=== PATIENT | female | born 1930 | race Caucasian/White ===

== ENCOUNTER 2017-04-22 10:18 | Inpatient (IN) | payer MEDICARE, OTHER ==
[~2017-04-22] VITALS: Ht 167.6 cm; Wt 64.8 kg
[2017-04-22 10:53] VITALS: BP 191/84; PULSE 73; RESP 18; TEMP 98.3
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
[2017-04-22] MEDS ORDERED: SODIUM CHLORIDE 0.9% FLUSH 5 ML FLUSH IV FLUSH PRN (11:15)
[2017-04-22 11:35] LABS: AUTOMATED NEUTROPHIL # 5.1 TH/MM3 (1.8-7.7); BASOPHIL % 0.1 % (0.0-2.0); EOSINOPHIL # 0.1 TH/MM3 (0-0.4); EOSINOPHIL % 1.9 % (0.0-4.0); HEMATOCRIT 40.4 % (35.0-46.0); HEMO FLAGS DIFF FINAL; LYMPH % 20.9 % (9.0-44.0); LYMPHOCYTE # 1.6 TH/MM3 (1.0-4.8); MEAN CELL VOLUME 92.5 FL (80.0-100.0); MEAN CORPUSCULAR HEMOGLOBIN 30.7 PG (27.0-34.0); MEAN CORPUSCULAR HGB CONC 33.1 % (32.0-36.0); MONO % 8.7 % (0.0-8.0); NEUT % 68.4 % (16.0-70.0); PLATELET COUNT 335 TH/MM3 (150-450); RED BLOOD COUNT 4.36 MIL/MM3 (4.00-5.30); RED CELL DISTRIBUTION WIDTH 14.5 % (11.6-17.2); WHITE BLOOD COUNT 7.4 TH/MM3 (4.0-11.0)
[2017-04-22 11:36] LABS: BACTERIA, URINE RARE /hpf; BLOOD, URINE NEG (NEG); GLUCOSE,URINE NEG (NEG); KETONE, URINE NEG (NEG); MUCUS URINE FEW /lpf (OCC); NITRITE,URINE NEG (NEG); PH, URINE 6.5 (5.0-8.5); SQUAMOUS EPITHELIAL CELL URINE <1 /hpf (0-5); URINE COLOR YELLOW (YELLW/STRAW)
[2017-04-22 11:39] LABS: COMMENT (UR) CATH-CULTURE IND; CULTURE IF INDICATED CATH CULTURE IND
[2017-04-22 11:46] LABS: ANION GAP 8 MEQ/L (5-15); BICARBONATE 27.2 MEQ/L (21.0-32.0); BLOOD UREA NITROGEN 22 MG/DL (7-18); CHLORIDE 105 MEQ/L (98-107); GLOMERULAR FILTRATION RATE 91 ML/MIN (>89); POTASSIUM 3.9 MEQ/L (3.5-5.1); SODIUM (NA) 140 MEQ/L (136-145)
[2017-04-22 11:49] LABS: ALCOHOL LESS THAN 3 MG/DL (0-5)
[2017-04-22] MEDS ORDERED: LORazepam 2 MG/ML VIAL IM ONE (12:15)
[2017-04-22] MEDS ORDERED: HALOPERIDOL LACTATE 5 MG/ML AMP IM ONE (12:15)
--- NOTE | 2017-04-22 12:24 | RADRPT ---
EXAM DATE/TIME: 04/22/2017 11:49 [facility] COMPARISON: No previous studies available for comparison. INDICATIONS : Shortness of breath. MEDICAL HISTORY : None. SURGICAL HISTORY : None. ENCOUNTER: Initial ACUITY: 1 day PAIN SCORE: 0/10 LOCATION: Bilateral chest FINDINGS: A single view of the chest demonstrates the lungs to be symmetrically aerated without evidence of mas s, infiltrate or effusion. The cardiomediastinal contours are unremarkable. Osseous structures are intact. A rounded calcified density projects over left scapula. CONCLUSION: No acute disease. Sly Olmos Jr., MD on April 22, 2017 at 12:22 Board Certified Radiologist. This report was verified electronically.
--- NOTE | 2017-04-22 13:28 | RADRPT ---
EXAM DATE/TIME: 04/22/2017 13:07 [facility] COMPARISON: No previous studies available for comparison. INDICATIONS : Altered mental status. RADIATION DOSE: 31.06 CTDIvol (mGy) MEDICAL HISTORY : None SURGICAL HISTORY : Hysterectomy. ENCOUNTER: Initial ACUITY: 1 day PAIN SCALE: 0/10 LOCATION: cranial TECHNIQUE: Multiple contiguous axial images were obtained of the head. Using automated exposure control and adj ustment of the mA and/or kV according to patient size, radiation dose was kept as low as reasonably a chievable to obtain optimal diagnostic quality images. DICOM format image data is available electro nically for review and comparison. FINDINGS: CEREBRUM: The ventricles are normal for age. Cortical atrophy. Areas of low-attenuation in the periventricular white matter. No evidence of midline shift, mass lesion, hemorrhage or acute infarction. No extra-ax ial fluid collections are seen. POSTERIOR FOSSA: The cerebellum and brainstem are intact. The 4th ventricle is midline. The cerebellopontine angle i s unremarkable. EXTRACRANIAL: The visualized portion of the orbits is intact. SKULL: The calvaria is intact. No evidence of skull fracture. CONCLUSION: 1. Cortical atrophy and periventricular white matter changes. 2. No acute intracranial abnormality. Christopher Dumont MD on April 22, 2017 at 13:23 Board Certified Radiologist. This report was verified electronically.
[2017-04-22 14:55] VITALS: BP 199/94; PULSE 76; RESP 18; O2SAT 99
[2017-04-22 16:20] VITALS: BP 170/77; PULSE 72; RESP 18; O2SAT 100
[2017-04-22] MEDS ORDERED: ALUMINUM/MAGNESIUM/SIMETH 30 ML CUP PO PRN (17:00)
[2017-04-22] MEDS ORDERED: MAGNESIUM HYDROXIDE SUSP 30 ML CUP PO PRN (17:00)
[2017-04-22] MEDS ORDERED: LORazepam 1 MG TAB PO PRN (17:00)
[2017-04-22] MEDS ORDERED: LORazepam 2 MG/ML VIAL IM PRN ×2 (17:00)
[2017-04-22] MEDS ORDERED: LORazepam 0.5 MG TAB PO PRN (17:00)
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
[2017-04-22 22:07] VITALS: BP 159/82; PULSE 79; RESP 18
[2017-04-22] MEDS ORDERED: ENOXAPARIN SODIUM 40 MG/0.4 ML SYRINGE SQ SCH (23:00)
--- NOTE | 2017-04-22 23:14 | RADRPT ---
EXAM DATE/TIME: 04/22/2017 22:31 [facility] COMPARISON: No previous studies available for comparison. INDICATIONS : CVA. MEDICAL HISTORY : Unknown. SURGICAL HISTORY : Unknown. ENCOUNTER: Subsequent ACUITY: 1 day PAIN SCORE: 3/10 LOCATION: cranial TECHNIQUE: Multiplanar, multisequence MRI of the brain was performed without contrast. FINDINGS: CEREBRUM: The ventricles are normal for age. No evidence of midline shift, mass lesion, hemorrhage or acute in farction. No extraaxial fluid collections are seen. The pituitary gland and suprasellar cistern are normal in configuration. WHITE MATTER: Mild signal abnormalities are seen in the white matter. POSTERIOR FOSSA: The cerebellum and brainstem are intact. The 4th ventricle is midline. The cerebellopontine angle is unremarkable. The cerebellar tonsils are normal in position. DIFFUSION IMAGING: No focal areas of restricted diffusion are seen. No evidence of acute infarction. EXTRACRANIAL: The visualized portions of the orbits and paranasal sinuses are unremarkable. CONCLUSION: Mild chronic white matter ischemic changes. No acute findings. Specifically no recent infarction, mas s or hemorrhage identified. Lars Hightower MD on April 22, 2017 at 23:09 Board Certified Radiologist. This report was verified electronically.
--- NOTE | 2017-04-22 23:21 | RADRPT ---
EXAM DATE/TIME: 04/22/2017 22:47 [facility] COMPARISON: No previous studies available for comparison. INDICATIONS : Right leg swelling. MEDICAL HISTORY : None. SURGICAL HISTORY : Hysterectomy. ENCOUNTER: Initial ACUITY: 1 day PAIN SCORE: 2/10 LOCATION: Right leg. TECHNIQUE: Venous ultrasound of the leg was performed from the inguinal ligament to the proximal calf. Real-bandar e, color Doppler and spectral tracing, compression and augmentation techniques were used. FINDINGS: The examination is positive for superficial thrombus in the posterior tibial vein. Negative for deep venous thrombosis in the right common femoral vein, femoral vein, popliteal vein, peroneal vein or sa phenous vein. CONCLUSION: A small amount of nonocclusive superficial thrombus in the posterior tibial vein. Remainder of exam unremarkable. Lars Hightower MD on April 22, 2017 at 23:19 Board Certified Radiologist. This report was verified electronically.
[2017-04-22 23:50] VITALS: BP 181/80; PULSE 78; RESP 18; TEMP 97.9; O2SAT 97
[2017-04-23] MEDS ORDERED: ENOXAPARIN SODIUM 80 MG/0.8 ML SYRINGE SQ ONE (01:00)
[2017-04-23] MEDS ORDERED: amLODIPine BESYLATE 5 MG TAB PO ONE (01:00)
[2017-04-23 06:15] VITALS: BP 160/74; PULSE 70; RESP 16; TEMP 98; O2SAT 98
[2017-04-23] MEDS ORDERED: amLODIPine BESYLATE 5 MG TAB PO SCH (09:00)
[2017-04-23 09:31] LABS: AUTOMATED NEUTROPHIL # 4.7 TH/MM3 (1.8-7.7); BASOPHIL % 0.2 % (0.0-2.0); EOSINOPHIL # 0.1 TH/MM3 (0-0.4); EOSINOPHIL % 1.3 % (0.0-4.0); HEMATOCRIT 41.5 % (35.0-46.0); HEMO FLAGS DIFF FINAL; LYMPH % 21.3 % (9.0-44.0); LYMPHOCYTE # 1.5 TH/MM3 (1.0-4.8); MEAN CELL VOLUME 92.1 FL (80.0-100.0); MEAN CORPUSCULAR HEMOGLOBIN 30.3 PG (27.0-34.0); MEAN CORPUSCULAR HGB CONC 32.9 % (32.0-36.0); MONO % 7.8 % (0.0-8.0); NEUT % 69.4 % (16.0-70.0); PLATELET COUNT 331 TH/MM3 (150-450); RED CELL DISTRIBUTION WIDTH 14.6 % (11.6-17.2); WHITE BLOOD COUNT 6.8 TH/MM3 (4.0-11.0)
[2017-04-23 10:08] LABS: ANION GAP 7 MEQ/L (5-15); AST (GOT) 23 U/L (15-37); BICARBONATE 26.6 MEQ/L (21.0-32.0); BLOOD UREA NITROGEN 15 MG/DL (7-18); CHLORIDE 105 MEQ/L (98-107); GLOMERULAR FILTRATION RATE 93 ML/MIN (>89); POTASSIUM 3.9 MEQ/L (3.5-5.1); SODIUM (NA) 139 MEQ/L (136-145)
[2017-04-23 10:33] LABS: ALKALINE PHOSPHATASE 96 U/L (45-117); ALT (GPT) 19 U/L (10-53); HDL CHOLESTEROL 66.9 MG/DL (40.0-60.0); LDL CHOLESTEROL 98 MG/DL (0-99); TOTAL BILIRUBIN ADULT 0.6 MG/DL (0.2-1.0)
[2017-04-23] MEDS ORDERED: hydrOXYzine HCL 50 MG TAB PO PRN (12:00)
[2017-04-23] MEDS ORDERED: diphenhydrAMINE HCL 50 MG CAP PO PRN (12:00)
[2017-04-23] MEDS ORDERED: ALUMINUM/MAGNESIUM/SIMETH 30 ML CUP PO PRN (12:00)
[2017-04-23] MEDS ORDERED: MAGNESIUM HYDROXIDE SUSP 30 ML CUP PO PRN (12:00)
[2017-04-23] MEDS ORDERED: ACETAMINOPHEN 325 MG TAB PO PRN (12:00)
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
--- NOTE | 2017-04-23 13:35 | EKG ---
Date Performed: 04/22/2017 Time Performed: 12:06:58 PTAGE: 87 years EKG: Sinus rhythm WITH OCCASIONAL SUPRAVENTRICULAR PREMATURE COMPLEXES MODERATE VOLTAGE CRITERIA FOR LVH, CONSIDER NOR MAL VARIANT BORDERLINE ECG NO PREVIOUS TRACING DOCTOR: Rebeka Loya Interpretating Date/Time 04/23/2017 13:32:01
[2017-04-23] MEDS ORDERED: cloNIDine HCL 0.1 MG TAB PO PRN (16:00)
[2017-04-23 16:59] VITALS: BP 156/68; PULSE 70; RESP 16; TEMP 97.6
[2017-04-23 17:32] LABS: HEMOGLOBIN A1a 1.2 %; HEMOGLOBIN A1b 1.7 %; HEMOGLOBIN Ao 85.2 %; HEMOGLOBIN P3 4.2 %
[2017-04-24 05:49] VITALS: BP 122/58; PULSE 75; RESP 16; TEMP 98; O2SAT 97
[2017-04-24] MEDS: amLODIPine BESYLATE 5 MG TAB PO SCH (08:07)
--- NOTE | 2017-04-24 10:14 | HHI.PYPN ---
Subjective Remarks Patient seen in a room with nurse Staci and counselor Cailin. Chart reviewed. Patient compliant medications. Patient alert pleasant with me though somewhat flirtatious and inappropriate with her comments indicis me in me, she said I was "adorable" however she is redirectable with no significant behavioral issues. Patient's evaporator operator molasses who is her POA will be coming to see her early this afternoon when need to discuss with him issues related to placement patient safety her ability to live independently her ability to drive safely. But this time I see no need for specific psychotropic medication. We'll continue observation assessment. Urine culture results shows 50-100,000 mixed arsh "probably contaminant" Review of Systems Except as stated in HPI: all other systems reviewed are Neg Objective Alert: Yes [place]: Person, Place (she does this [facility]), Date (1915 and April) Mood: Happy, Other (somewhat intense) Affect: Other (increase range of motion intensity) Memory Intact: Comment (poor) Hallucinations: Other (denies) Delusions: No Delusion Type: Other (somewhat hypersexual questionable mildly grandiose) Suicidal: Ideation (denies) Homicidal: Ideation (denies) Insight/Judgment Poor Labs Date/Time Source Procedure Growth Status 04/22/17 11:09 Urine Catheterized Urine Urine Culture - Final 50-100,000 CFU/ML MIXED ARSH... Complete Vitals/IOs Vital Signs Date Time Temp Pulse Resp B/P (MAP) Pulse Ox O2 Delivery O2 Flow Rate FiO2 04/24/17 05:49 98.0 75 16 122/58 (79) 97 04/22/17 16:20 Room Air Intake and Output 04/24/17 04/24/17 04/24/17 07:59 15:59 23:59 Intake Total 0 ml Balance 0 ml Assessment & Plan Problem List: (1) Dementia in other diseases classified elsewhere with behavioral disturbance ICD Codes: F02.81 - Dementia in other diseases classified elsewhere with behavioral disturbance (2) Alzheimer's dementia with behavioral disturbance ICD Codes: G30.8 - Other Alzheimer's disease; F02.81 - Dementia in other diseases classified elsewhere with behavioral disturbance Assessment & Plan Estimated LOS: days patient continue somewhat confused though flirtatious in inappropriate comments towards me personally, she is no significant behavioral problem. Need to consult with her evaporator operator molasses who is her POA to help us determine discharge and placement recommendations Justification for Cont. Inpt. At this time patient will decompensate if place to the lower level of care Discharge Planning To be determined Glenn Castellanos MD Apr 24, 2017 10:14
[2017-04-24] MEDS ORDERED: LORazepam 1 MG TAB PO PRN (13:45)
[2017-04-24] MEDS ORDERED: LORazepam 0.5 MG TAB PO PRN (13:45)
[2017-04-24] MEDS ORDERED: diphenhydrAMINE HCL 50 MG CAP PO PRN (13:45)
[2017-04-24] MEDS ORDERED: LORazepam 2 MG/ML VIAL IM PRN ×2 (13:45)
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
[2017-04-24 17:43] VITALS: BP 145/72; PULSE 72; RESP 16; TEMP 97.1; O2SAT 100
[2017-04-24] MEDS: hydrOXYzine HCL 50 MG TAB PO PRN (20:42)
[2017-04-24] MEDS: ACETAMINOPHEN 325 MG TAB PO PRN (20:42)
[2017-04-24] MEDS: ENOXAPARIN SODIUM 40 MG/0.4 ML SYRINGE SQ SCH (22:01)
[2017-04-25 05:41] VITALS: BP 129/66; PULSE 76; RESP 16; TEMP 98.4; O2SAT 95
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
[2017-04-25] MEDS: amLODIPine BESYLATE 5 MG TAB PO SCH (08:39)
[2017-04-25] MEDS: MEMANTINE HCL 5 MG TAB PO SCH (08:39)
--- NOTE | 2017-04-25 13:38 | HHI.PYPN ---
Subjective Remarks Patient seen in day room with nurse Ruggiero chart review. Patient compliant medications, patient continues alert some vague diffuse confusion. She continues quite intense. She perseverates want to be discharged today. If not she wishes to discharge at 10:00 tomorrow morning when her [id number] comes to pick her up this is factitious. She was somewhat irritable as she perseverated on those questions in spite of our consistency in her responses. Neurologic consult noted and appreciated and agreed with Review of Systems Except as stated in HPI: all other systems reviewed are Neg Objective Alert: Yes [place]: Person, Place (she does this [facility] in [facility]), Date (1915 and April) Mood: Happy, Other (somewhat intense) Affect: Other (increase range of motion intensity) Memory Intact: Comment (poor) Hallucinations: Other (denies) Delusions: No Delusion Type: Other (somewhat hypersexual questionable mildly grandiose) Suicidal: Ideation (denies) Homicidal: Ideation (denies) Insight/Judgment Very poor Labs Test 04/25/17 09:04 Date/Time Source Procedure Growth Status 04/22/17 11:09 Urine Catheterized Urine Urine Culture - Final 50-100,000 CFU/ML MIXED RADHA... Complete Vitals/IOs Vital Signs Date Time Temp Pulse Resp B/P (MAP) Pulse Ox O2 Delivery O2 Flow Rate FiO2 04/25/17 05:41 98.4 76 16 129/66 (87) 95 04/22/17 16:20 Room Air Intake and Output 04/25/17 04/25/17 04/26/17 08:00 16:00 00:00 Intake Total 0 ml Balance 0 ml Assessment & Plan Problem List: (1) Dementia in other diseases classified elsewhere with behavioral disturbance ICD Codes: F02.81 - Dementia in other diseases classified elsewhere with behavioral disturbance (2) Alzheimer's dementia with behavioral disturbance ICD Codes: G30.8 - Other Alzheimer's disease; F02.81 - Dementia in other diseases classified elsewhere with behavioral disturbance Assessment & Plan Estimated LOS: days. Continue somewhat confused showing some slight increased irritability when not accepting our responses to her questions about discharge Justification for Cont. Inpt. At this time patient will decompensate the placed in a lower level of care Discharge Planning To be determined Request HC Surrog/Guard Advoc?: Yes Glenn Castellanos MD Apr 25, 2017 13:38
[2017-04-25] MEDS: hydrOXYzine HCL 50 MG TAB PO PRN (19:51)
[2017-04-25] MEDS: ENOXAPARIN SODIUM 40 MG/0.4 ML SYRINGE SQ SCH (20:53)
[2017-04-26 05:39] VITALS: BP 139/64; PULSE 87; RESP 18; TEMP 98.2
[2017-04-26] MEDS: MEMANTINE HCL 5 MG TAB PO SCH (10:32)
[2017-04-26] MEDS: amLODIPine BESYLATE 5 MG TAB PO SCH (10:32)
--- NOTE | 2017-04-26 14:02 | HHI.PYPN ---
Subjective Remarks Patient seen on unit with floor staff. Patient remains alert though diffusely confused continues to demand immediate discharge. Asking why she is a big taken home. For now continue treatment. Will continue to work with patient's advocate related to placement recommendations Review of Systems Except as stated in HPI: all other systems reviewed are Neg Objective Alert: Yes [place]: Person, Place (she does this [facility] in [facility]), Date (1915 and April) Mood: Happy, Other (somewhat intense) Affect: Other (increase range of motion intensity) Memory Intact: Comment (poor) Hallucinations: Other (denies) Delusions: No Delusion Type: Other (somewhat hypersexual questionable mildly grandiose) Suicidal: Ideation (denies) Homicidal: Ideation (denies) Insight/Judgment Very poor Labs Date/Time Source Procedure Growth Status 04/22/17 11:09 Urine Catheterized Urine Urine Culture - Final 50-100,000 CFU/ML MIXED RADHA... Complete Vitals/IOs Vital Signs Date Time Temp Pulse Resp B/P (MAP) Pulse Ox O2 Delivery O2 Flow Rate FiO2 04/26/17 05:39 98.2 87 18 139/64 (89) 04/25/17 05:41 95 04/22/17 16:20 Room Air Intake and Output 04/26/17 04/26/17 04/27/17 08:00 16:00 00:00 Intake Total 480 ml Balance 480 ml Assessment & Plan Problem List: (1) Dementia in other diseases classified elsewhere with behavioral disturbance ICD Codes: F02.81 - Dementia in other diseases classified elsewhere with behavioral disturbance (2) Alzheimer's dementia with behavioral disturbance ICD Codes: G30.8 - Other Alzheimer's disease; F02.81 - Dementia in other diseases classified elsewhere with behavioral disturbance Assessment & Plan Estimated LOS: days patient continues dementing confused somewhat irritable with no insight. For now continue treatment Justification for Cont. Inpt. At this time patient would decompensate the placed in a lower level of care Discharge Planning To be determined Request HC Surrog/Guard Advoc?: Yes Glenn Castellanos MD Apr 26, 2017 14:02
[2017-04-26 17:49] VITALS: BP 150/90; PULSE 97; RESP 18; TEMP 98.5; O2SAT 95
[2017-04-26] MEDS: ENOXAPARIN SODIUM 40 MG/0.4 ML SYRINGE SQ SCH (21:53)
--- NOTE | 2017-04-26 23:29 | MG ---
cc: BLAS MARRERO MD Lab No: Date: 04/26/17 Age: 87 Sex: F Race: DATE OF [address] Lui. MEDICAL HISTORY The patient confused,agitated. inappropriate. MEDICATIONS Namenda. Norvasc DESCRIPTION The background activity is 9-10 Hz alpha bilateral and symmetrical. Hyperventilation was not done. Photic stimulation did not elicit a driving response. There were no electrographic seizures or epileptiform discharges noted during the recording. INTERPRETATION This is a normal awake EEG. No ictal activity or epileptiform discharges were noted. Clinical correlation is recommended. MD NAZ Arroyo/ /10:56 PM /11:16 PM MTDD
[2017-04-27 06:00] VITALS: BP 188/85; PULSE 76; RESP 15; TEMP 98.9; O2SAT 98
[2017-04-27] MEDS: MEMANTINE HCL 5 MG TAB PO SCH (09:43)
[2017-04-27] MEDS: amLODIPine BESYLATE 5 MG TAB PO SCH (09:43)
--- NOTE | 2017-04-27 16:29 | HHI.PYPN ---
Subjective Remarks Pt seen and discussed with staff. She is pleasantly confused and makes sexual remarks and blows kisses to staff, but does not physically aggress upon anyone.Memory is impaired. Objective Alert: Yes [place]: Person, Place ([place]) Mood: Anxious, Other (somewhat intense) Affect: Other (congruent) Memory Intact: Comment (poor) Hallucinations: Other (denies) Delusions: No Delusion Type: Other (somewhat hypersexual questionable mildly grandiose) Suicidal: Ideation (denies) Homicidal: Ideation (denies) Insight/Judgment poor Labs Date/Time Source Procedure Growth Status 04/22/17 11:09 Urine Catheterized Urine Urine Culture - Final 50-100,000 CFU/ML MIXED RADHA... Complete Vitals/IOs Vital Signs Date Time Temp Pulse Resp B/P (MAP) Pulse Ox O2 Delivery O2 Flow Rate FiO2 04/27/17 06:00 98.9 76 15 188/85 (119) 98 Intake and Output 04/27/17 04/27/17 04/27/17 07:59 15:59 23:59 Intake Total 240 ml Balance 240 ml Assessment & Plan Problem List: (1) Dementia in other diseases classified elsewhere with behavioral disturbance ICD Codes: F02.81 - Dementia in other diseases classified elsewhere with behavioral disturbance (2) Alzheimer's dementia with behavioral disturbance ICD Codes: G30.8 - Other Alzheimer's disease; F02.81 - Dementia in other diseases classified elsewhere with behavioral disturbance Assessment & Plan continue current tx plan Estimated LOS: days Justification for Cont. Inpt. Continue current tx plan Discharge Planning risk of decompensation Request HC Surrog/Guard Advoc?: Yes Karen Shaffer MD Apr 27, 2017 16:29
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
[2017-04-27] MEDS: ACETAMINOPHEN 325 MG TAB PO PRN ×2 (16:54→21:23)
[2017-04-27 18:17] VITALS: BP 134/86; PULSE 73; RESP 18; TEMP 98.2; O2SAT 96
[2017-04-27] MEDS: ENOXAPARIN SODIUM 40 MG/0.4 ML SYRINGE SQ SCH (20:58)
[2017-04-28 06:35] VITALS: BP 157/67; PULSE 77; RESP 16; TEMP 98.3; O2SAT 96
[2017-04-28] MEDS: amLODIPine BESYLATE 5 MG TAB PO SCH (08:51)
[2017-04-28] MEDS: MEMANTINE HCL 5 MG TAB PO SCH (08:51)
--- NOTE | 2017-04-28 14:44 | HHI.PYPN ---
Subjective Remarks Pt seen and discussed with staff. She is pleasant and cooperative with care. Medication compliant. She remains pleasantly confused. Objective Alert: Yes [place]: Person, Place ([place]) Mood: Happy, Other (somewhat intense) Affect: Other (congruent) Memory Intact: Comment (poor) Hallucinations: Other (denies) Delusions: No Delusion Type: Other (somewhat hypersexual questionable mildly grandiose) Suicidal: Ideation (denies) Homicidal: Ideation (denies) Insight/Judgment poor Labs Date/Time Source Procedure Growth Status 04/22/17 11:09 Urine Catheterized Urine Urine Culture - Final 50-100,000 CFU/ML MIXED RADHA... Complete Vitals/IOs Vital Signs Date Time Temp Pulse Resp B/P (MAP) Pulse Ox O2 Delivery O2 Flow Rate FiO2 04/28/17 06:35 98.3 77 16 157/67 (97) 96 Intake and Output 04/28/17 04/28/17 04/29/17 08:00 16:00 00:00 Intake Total 480 ml 240 ml Balance 480 ml 240 ml Assessment & Plan Problem List: (1) Dementia in other diseases classified elsewhere with behavioral disturbance ICD Codes: F02.81 - Dementia in other diseases classified elsewhere with behavioral disturbance (2) Alzheimer's dementia with behavioral disturbance ICD Codes: G30.8 - Other Alzheimer's disease; F02.81 - Dementia in other diseases classified elsewhere with behavioral disturbance Assessment & Plan Continue current tx plan. Estimated LOS: days Justification for Cont. Inpt. risk of decompensation Request HC Surrog/Guard Advoc?: Yes Karen Shaffer MD Apr 28, 2017 14:44
[2017-04-28 18:57] VITALS: BP 122/74; PULSE 81; RESP 16; TEMP 98
[2017-04-28] MEDS: ENOXAPARIN SODIUM 40 MG/0.4 ML SYRINGE SQ SCH (20:34)
[2017-04-29 06:14] VITALS: BP 167/79; PULSE 87; RESP 17; TEMP 98.1; O2SAT 98
[2017-04-29] MEDS: MEMANTINE HCL 5 MG TAB PO SCH (09:00)
[2017-04-29] MEDS: amLODIPine BESYLATE 5 MG TAB PO SCH (09:00)
--- NOTE | 2017-04-29 12:30 | HHI.PYPN ---
Subjective Remarks Patient seen in day room with nurse Maciej, patient calm pleasantly confused continues to perseverate about wanting to be discharged saying now that her mother and [id number] have come to the home other waiting for her. Otherwise there are no behavioral issues noted. Compliant medications Review of Systems Except as stated in HPI: all other systems reviewed are Neg Objective Alert: Yes [place]: Person, Place ([place]) Mood: Happy, Other (somewhat intense) Affect: Other (congruent) Memory Intact: Comment (poor) Hallucinations: Other (denies) Delusions: No Delusion Type: Other (somewhat hypersexual questionable mildly grandiose) Suicidal: Ideation (denies) Homicidal: Ideation (denies) Insight/Judgment Very poor Labs Date/Time Source Procedure Growth Status 04/22/17 11:09 Urine Catheterized Urine Urine Culture - Final 50-100,000 CFU/ML MIXED RADHA... 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 Inpt. At this time patient will decompensate if placed in the lower level of care Discharge Planning To be determined Request HC Surrog/Guard Advoc?: Yes Glenn Castellanos MD Apr 29, 2017 12:30
[2017-04-29 18:00] VITALS: BP 146/64; PULSE 84; RESP 16; TEMP 98.6; O2SAT 97
[2017-04-29] MEDS: ENOXAPARIN SODIUM 40 MG/0.4 ML SYRINGE SQ SCH (20:22)
[2017-04-30 05:29] VITALS: BP 153/77; PULSE 89; RESP 17; TEMP 97.4; O2SAT 98
[2017-04-30] MEDS: amLODIPine BESYLATE 5 MG TAB PO SCH (08:21)
[2017-04-30] MEDS: MEMANTINE HCL 5 MG TAB PO SCH (08:21)
--- NOTE | 2017-04-30 11:19 | HHI.PYPN ---
Subjective Remarks Patient seen in day room with nurse Maciej and counselor for ran out. Chart reviewed. Patient compliant medications. While patient remains somewhat inappropriate with sexual comments there is no behavioral issues noted. She continues diffusely confused and disoriented now stating that I took care of her a number of years ago. She continues to focus on discharge. Will be meeting with patient's possible placement issues Review of Systems Except as stated in HPI: all other systems reviewed are Neg Objective Alert: Yes [place]: Person, Place ([place]) Mood: Happy, Other (somewhat intense) Affect: Other (congruent) Memory Intact: Comment (poor) Hallucinations: Other (denies) Delusions: No Delusion Type: Other (somewhat hypersexual questionable mildly grandiose) Suicidal: Ideation (denies) Homicidal: Ideation (denies) Insight/Judgment Very poor Labs Date/Time Source Procedure Growth Status 04/22/17 11:09 Urine Catheterized Urine Urine Culture - Final 50-100,000 CFU/ML MIXED RADHA... Complete Vitals/IOs Vital Signs Date Time Temp Pulse Resp B/P (MAP) Pulse Ox O2 Delivery O2 Flow Rate FiO2 04/30/17 05:29 97.4 89 17 153/77 (102) 98 Assessment & Plan Problem List: (1) Dementia in other diseases classified elsewhere with behavioral disturbance ICD Codes: F02.81 - Dementia in other diseases classified elsewhere with behavioral disturbance (2) Alzheimer's dementia with behavioral disturbance ICD Codes: G30.8 - Other Alzheimer's disease; F02.81 - Dementia in other diseases classified elsewhere with behavioral disturbance Assessment & Plan Estimated LOS: days patient continues severely demented and confused, with some sexually focused comments though no behavioral problems Justification for Cont. Inpt. At this time patient decompensate if placed in a lower level of care Discharge Planning To be determined Request HC Surrog/Guard Advoc?: Yes Glenn Castellanos MD Apr 30, 2017 11:19
[2017-04-30 18:00] VITALS: BP 174/71; PULSE 107; RESP 18; TEMP 98.8; O2SAT 96
[2017-04-30] MEDS: ENOXAPARIN SODIUM 40 MG/0.4 ML SYRINGE SQ SCH (20:29)
[2017-05-01 06:08] VITALS: BP 148/68; PULSE 85; RESP 17; TEMP 98; O2SAT 99
[2017-05-01] MEDS: amLODIPine BESYLATE 5 MG TAB PO SCH (08:36)
[2017-05-01] MEDS: MEMANTINE HCL 5 MG TAB PO SCH (08:36)
--- NOTE | 2017-05-01 11:24 | HHI.PYPN ---
Subjective Remarks Patient seen in dayroom with floor staff, chart reviewed, patient compliant medications. Patient continues inappropriate with her behaviors and conversations with staff and other patients. Today she asked me if I also and to [place] done next to her so she can talk to work, she also restart been attempt to home my hand. Patient scheduled for [employer] tomorrow. Hopefully her power of erisa attorney will be present also testifying Review of Systems Except as stated in HPI: all other systems reviewed are Neg Objective Alert: Yes [place]: Person, Place ([place]) Mood: Happy, Other (somewhat intense) Affect: Other (congruent) Memory Intact: Comment (poor) Hallucinations: Other (denies) Delusions: No Delusion Type: Other (somewhat hypersexual questionable mildly grandiose) Suicidal: Ideation (denies) Homicidal: Ideation (denies) Insight/Judgment Very poor Labs Date/Time Source Procedure Growth Status 04/22/17 11:09 Urine Catheterized Urine Urine Culture - Final 50-100,000 CFU/ML MIXED RADHA... Complete Vitals/IOs Vital Signs Date Time Temp Pulse Resp B/P (MAP) Pulse Ox O2 Delivery O2 Flow Rate FiO2 05/01/17 06:08 98.0 85 17 148/68 (94) 99 Intake and Output 05/01/17 05/01/17 05/02/17 08:00 16:00 00:00 Intake Total 480 ml Balance 480 ml Assessment & Plan Problem List: (1) Dementia in other diseases classified elsewhere with behavioral disturbance ICD Codes: F02.81 - Dementia in other diseases classified elsewhere with behavioral disturbance (2) Alzheimer's dementia with behavioral disturbance ICD Codes: G30.8 - Other Alzheimer's disease; F02.81 - Dementia in other diseases classified elsewhere with behavioral disturbance Assessment & Plan Estimated LOS: days patient continues demented with some inappropriate sexual Comments, though no overt behavioral issues. Patient scheduled for [employer] [facility] tomorrow Justification for Cont. Inpt. At this time patient will decompensate placed in a lower level of care Discharge Planning To be determined Request HC Surrog/Guard Advoc?: Yes Glenn Castellanos MD May 01, 2017 11:24
[2017-05-01 16:30] VITALS: BP 155/87; PULSE 81; RESP 18; TEMP 98; O2SAT 95
[2017-05-01] MEDS: ENOXAPARIN SODIUM 40 MG/0.4 ML SYRINGE SQ SCH (20:54)
[2017-05-02 05:24] VITALS: BP 140/68; PULSE 70; RESP 18; TEMP 98; O2SAT 98
[2017-05-02] MEDS: amLODIPine BESYLATE 5 MG TAB PO SCH (08:25)
[2017-05-02] MEDS: MEMANTINE HCL 5 MG TAB PO SCH (08:25)
--- NOTE | 2017-05-02 12:14 | HHI.PYPN ---
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 Patient was retained by [employer] Aiden of the 4 week continue meds. Patient continues diffusely confused disoriented though with intense affect somewhat intrusive superficial silly and intimate calling [employer] Aiden "honey" and "adorable" for now continue treatment placement may become problematic Review of Systems Except as stated in HPI: all other systems reviewed are Neg Objective Alert: Yes [place]: Person, Place ([place]) Mood: Happy, Other (somewhat intense) Affect: Other (congruent) Memory Intact: Comment (poor) Hallucinations: Other (denies) Delusions: No Delusion Type: Other (somewhat hypersexual questionable mildly grandiose) Suicidal: Ideation (denies) Homicidal: Ideation (denies) Insight/Judgment Very poor Labs Date/Time Source Procedure Growth Status 04/22/17 11:09 Urine Catheterized Urine Urine Culture - Final 50-100,000 CFU/ML MIXED RADHA... Complete Vitals/IOs Vital Signs Date Time Temp Pulse Resp B/P (MAP) Pulse Ox O2 Delivery O2 Flow Rate FiO2 05/02/17 05:24 98.0 70 18 140/68 (92) 98 Intake and Output 05/02/17 05/02/17 05/03/17 08:00 16:00 00:00 Intake Total 120 ml Balance 120 ml Assessment & Plan Problem List: (1) Dementia in other diseases classified elsewhere with behavioral disturbance ICD Codes: F02.81 - Dementia in other diseases classified elsewhere with behavioral disturbance (2) Alzheimer's dementia with behavioral disturbance ICD Codes: G30.8 - Other Alzheimer's disease; F02.81 - Dementia in other diseases classified elsewhere with behavioral disturbance Assessment & Plan Estimated LOS: days patient [address] continue 4 weeks. Patient later to be health care surrogate. Placement may become problematic Justification for Cont. Inpt. At this time patient will decompensate if placed on the lower level of care Discharge Planning To be determined Request HC Surrog/Guard Advoc?: Yes Glenn Castellanos MD May 02, 2017 12:14
[2017-05-02 17:56] VITALS: BP 99/57; PULSE 77; RESP 18; TEMP 98.3; O2SAT 94
[2017-05-02] MEDS: ENOXAPARIN SODIUM 40 MG/0.4 ML SYRINGE SQ SCH (20:42)
[2017-05-03 05:26] VITALS: BP 101/65; PULSE 74; RESP 17; TEMP 97.7; O2SAT 96
[2017-05-03] MEDS: MEMANTINE HCL 5 MG TAB PO SCH (08:17)
[2017-05-03] MEDS: amLODIPine BESYLATE 5 MG TAB PO SCH (08:17)
--- NOTE | 2017-05-03 11:03 | HHI.PYPN ---
Subjective Remarks Patient seen in her room with nurse Anita. Chart reviewed. Patient compliant medication. Well patient no behavioral issues or aggressiveness, she continues markedly confused and disoriented now stating that her appearance awaiting to pick her up today to take her to her home. She continues to have sexually inappropriate comments been in the loud voice basically focused on any person who walks by her room. Review of Systems Except as stated in HPI: all other systems reviewed are Neg Objective Alert: Yes [place]: Person, Place ([place]) Mood: Happy, Other (somewhat intense) Affect: Other (congruent) Memory Intact: Comment (poor) Hallucinations: Other (denies) Delusions: No Delusion Type: Other (somewhat hypersexual questionable mildly grandiose) Suicidal: Ideation (denies) Homicidal: Ideation (denies) Insight/Judgment Very poor Labs Date/Time Source Procedure Growth Status 04/22/17 11:09 Urine Catheterized Urine Urine Culture - Final 50-100,000 CFU/ML MIXED RADHA... Complete Vitals/IOs Vital Signs Date Time Temp Pulse Resp B/P (MAP) Pulse Ox O2 Delivery O2 Flow Rate FiO2 05/03/17 05:26 97.7 74 17 101/65 (77) 96 Intake and Output 05/03/17 05/03/17 05/04/17 08:00 16:00 00:00 Intake Total 0 ml 720 ml Balance 0 ml 720 ml Assessment & Plan Problem List: (1) Dementia in other diseases classified elsewhere with behavioral disturbance ICD Codes: F02.81 - Dementia in other diseases classified elsewhere with behavioral disturbance (2) Alzheimer's dementia with behavioral disturbance ICD Codes: G30.8 - Other Alzheimer's disease; F02.81 - Dementia in other diseases classified elsewhere with behavioral disturbance Assessment & Plan Estimated LOS: days patient continues demented, with frequent sexually inappropriate comments, though most significant behavioral problems. Justification for Cont. Inpt. At this time patient would decompensate if placed a lower level of care Discharge Planning To be determined Request HC Surrog/Guard Advoc?: Yes Glenn Castellanos MD May 03, 2017 11:03
[2017-05-03 17:14] VITALS: BP 135/63; PULSE 73; RESP 18; TEMP 98.2; O2SAT 97
[2017-05-03] MEDS: ENOXAPARIN SODIUM 40 MG/0.4 ML SYRINGE SQ SCH (20:39)
[2017-05-04 06:05] VITALS: BP 145/65; PULSE 81; RESP 15; TEMP 98.1; O2SAT 96
[2017-05-04] MEDS: amLODIPine BESYLATE 5 MG TAB PO SCH (08:34)
[2017-05-04] MEDS: MEMANTINE HCL 5 MG TAB PO SCH (08:34)
--- NOTE | 2017-05-04 13:28 | HHI.PYPN ---
Subjective Remarks Patient was seen and case discussed with nursing. Patient is pleasantly confused. Patient shows me a picture that she colored in and shows a to me again 10 seconds later. She thinks is 1915, that she is 57, and that her step parents are alive. Per nursing she is sexually inappropriate with men. She is behaving well on the unit. Physical or verbal outbursts. Compliant with medications Objective Alert: Yes [place]: Person, Place ([place]) Mood: Happy, Other (somewhat intense) Affect: Other (congruent) Memory Intact: Comment (poor) Hallucinations: Other (denies) Delusions: No Delusion Type: Other (somewhat hypersexual questionable mildly grandiose) Suicidal: Ideation (denies) Homicidal: Ideation (denies) Insight/Judgment Poor Labs Date/Time Source Procedure Growth Status 04/22/17 11:09 Urine Catheterized Urine Urine Culture - Final 50-100,000 CFU/ML MIXED RADHA... Complete Vitals/IOs Vital Signs Date Time Temp Pulse Resp B/P (MAP) Pulse Ox O2 Delivery O2 Flow Rate FiO2 05/04/17 06:05 98.1 81 15 145/65 (91) 96 Intake and Output 05/04/17 05/04/17 05/05/17 08:00 16:00 00:00 Intake Total 120 ml Balance 120 ml Assessment & Plan Problem List: (1) Dementia in other diseases classified elsewhere with behavioral disturbance ICD Codes: F02.81 - Dementia in other diseases classified elsewhere with behavioral disturbance (2) Alzheimer's dementia with behavioral disturbance ICD Codes: G30.8 - Other Alzheimer's disease; F02.81 - Dementia in other diseases classified elsewhere with behavioral disturbance Assessment & Plan Continue current treatment plan Justification for Cont. Inpt. Patient will decompensate in a less restrictive setting Request HC Surrog/Guard Advoc?: Yes Abhinav Benjamin DO May 04, 2017 13:28
[2017-05-04] MEDS: ENOXAPARIN SODIUM 40 MG/0.4 ML SYRINGE SQ SCH (20:42)
[2017-05-05 05:32] VITALS: BP 142/65; PULSE 63; RESP 18; TEMP 97.8; O2SAT 97
[2017-05-05] MEDS: amLODIPine BESYLATE 5 MG TAB PO SCH (08:40)
[2017-05-05] MEDS: MEMANTINE HCL 5 MG TAB PO SCH (08:40)
--- NOTE | 2017-05-05 11:03 | HHI.PYPN ---
Subjective Remarks Patient was seen and case discussed with nursing. Patient remains perseverant on discharge. She is alert and oriented 2. She remains confused with evident memory loss. Less sexually preoccupied today. Compliant with medications, behaving well on the unit, social with others Objective Alert: Yes [place]: Person, Place ([place]) Mood: Happy Affect: Other (mildly elevated) Memory Intact: Comment (poor) Hallucinations: Other (denies) Delusions: No Delusion Type: Other (somewhat hypersexual questionable mildly grandiose) Suicidal: Ideation (denies) Homicidal: Ideation (denies) Insight/Judgment Poor Labs Date/Time Source Procedure Growth Status 04/22/17 11:09 Urine Catheterized Urine Urine Culture - Final 50-100,000 CFU/ML MIXED RADHA... Complete Vitals/IOs Vital Signs Date Time Temp Pulse Resp B/P (MAP) Pulse Ox O2 Delivery O2 Flow Rate FiO2 05/05/17 05:32 97.8 63 18 142/65 (90) 97 Intake and Output 05/05/17 05/05/17 05/06/17 08:00 16:00 00:00 Intake Total 0 ml Balance 0 ml Assessment & Plan Problem List: (1) Dementia in other diseases classified elsewhere with behavioral disturbance ICD Codes: F02.81 - Dementia in other diseases classified elsewhere with behavioral disturbance (2) Alzheimer's dementia with behavioral disturbance ICD Codes: G30.8 - Other Alzheimer's disease; F02.81 - Dementia in other diseases classified elsewhere with behavioral disturbance Assessment & Plan Continue current treatment plan Justification for Cont. Inpt. Patient will decompensate in a less restrictive setting Request HC Surrog/Guard Advoc?: Yes Abhinav Benjamin DO May 05, 2017 11:03
[2017-05-05] MEDS: ENOXAPARIN SODIUM 40 MG/0.4 ML SYRINGE SQ SCH (21:03)
[2017-05-06 05:15] VITALS: BP 129/87; PULSE 92; RESP 17; TEMP 98.3
[2017-05-06] MEDS: MEMANTINE HCL 5 MG TAB PO SCH (09:00)
[2017-05-06] MEDS: amLODIPine BESYLATE 5 MG TAB PO SCH (09:31)
--- NOTE | 2017-05-06 12:40 | HHI.PYPN ---
Subjective Remarks Patient seen in day room with nurse Nikunj and counselor bob, chart review, patient compliant medications. Patient continues intrusive verbally, continues somewhat inappropriate sexually oriented comments, today did [place] Her called me "funny" she is not been any significant behavioral problem otherwise Review of Systems Except as stated in HPI: all other systems reviewed are Neg Objective Alert: Yes [place]: Person, Place ([place]) Mood: Happy Affect: Other (mildly elevated) Memory Intact: Comment (poor) Hallucinations: Other (denies) Delusions: No Delusion Type: Other (somewhat hypersexual questionable mildly grandiose) Suicidal: Ideation (denies) Homicidal: Ideation (denies) Insight/Judgment Very poor Labs Date/Time Source Procedure Growth Status 04/22/17 11:09 Urine Catheterized Urine Urine Culture - Final 50-100,000 CFU/ML MIXED RADHA... Complete Vitals/IOs Vital Signs Date Time Temp Pulse Resp B/P (MAP) Pulse Ox O2 Delivery O2 Flow Rate FiO2 05/06/17 05:15 98.3 92 17 129/87 (101) 05/05/17 05:32 97 Assessment & Plan Problem List: (1) Dementia in other diseases classified elsewhere with behavioral disturbance ICD Codes: F02.81 - Dementia in other diseases classified elsewhere with behavioral disturbance (2) Alzheimer's dementia with behavioral disturbance ICD Codes: G30.8 - Other Alzheimer's disease; F02.81 - Dementia in other diseases classified elsewhere with behavioral disturbance Assessment & Plan Estimated LOS: days patient continues confused and demented, continue somewhat hypersexual, but no behavioral problems. Compliant medications Justification for Cont. Inpt. At this time patient will decompensate if placed in the lower level of care Discharge Planning To be determined Request HC Surrog/Guard Advoc?: Yes Glenn Castellanos MD May 06, 2017 12:40
[2017-05-06 21:07] VITALS: BP 143/63; PULSE 67; RESP 16; TEMP 98.1; O2SAT 96
[2017-05-06] MEDS: ENOXAPARIN SODIUM 40 MG/0.4 ML SYRINGE SQ SCH (21:12)
[2017-05-07 05:45] VITALS: BP 159/72; PULSE 85; RESP 16; TEMP 98; O2SAT 97
--- NOTE | 2017-05-07 09:29 | HHI.PYPN ---
Subjective Remarks Patient seen in the day room with counselor Cailin. Chart reviewed. Patient compliant medication. Patient continues diffusely confused disoriented. She also continues quite lively with sexually inappropriate remarks calling me honey and sweetheart 20 mute calm and sit next to her. She also said "don't worry I won't rape you" however she is otherwise no behavioral problem. States she was called today because her mother and father are visiting Review of Systems Except as stated in HPI: all other systems reviewed are Neg Objective Alert: Yes [place]: Person, Place ([place]) Mood: Happy Affect: Other (mildly elevated) Memory Intact: Comment (poor) Hallucinations: Other (denies) Delusions: No Delusion Type: Other (somewhat hypersexual questionable mildly grandiose) Suicidal: Ideation (denies) Homicidal: Ideation (denies) Insight/Judgment Very poor Labs Date/Time Source Procedure Growth Status 04/22/17 11:09 Urine Catheterized Urine Urine Culture - Final 50-100,000 CFU/ML MIXED RADHA... Complete Vitals/IOs Vital Signs Date Time Temp Pulse Resp B/P (MAP) Pulse Ox O2 Delivery O2 Flow Rate FiO2 05/07/17 05:45 98.0 85 16 159/72 (101) 97 Intake and Output 05/07/17 05/07/17 05/07/17 07:59 15:59 23:59 Intake Total 240 ml Balance 240 ml Assessment & Plan Problem List: (1) Dementia in other diseases classified elsewhere with behavioral disturbance ICD Codes: F02.81 - Dementia in other diseases classified elsewhere with behavioral disturbance (2) Alzheimer's dementia with behavioral disturbance ICD Codes: G30.8 - Other Alzheimer's disease; F02.81 - Dementia in other diseases classified elsewhere with behavioral disturbance Assessment & Plan Estimated LOS: days patient continues confused and demented, while no significant behavioral problems, she still makes significant frequent sexually inappropriate comments Justification for Cont. Inpt. At this time patient will decompensate if placed in a lower level of care Discharge Planning To be determined Request HC Surrog/Guard Advoc?: Yes Glenn Castellanos MD May 07, 2017 09:29
[2017-05-07] MEDS: amLODIPine BESYLATE 5 MG TAB PO SCH (10:03)
[2017-05-07] MEDS: MEMANTINE HCL 5 MG TAB PO SCH (10:04)
[2017-05-07 16:55] VITALS: BP 135/67; PULSE 83; RESP 18; TEMP 98.2; O2SAT 98
[2017-05-07] MEDS: ENOXAPARIN SODIUM 40 MG/0.4 ML SYRINGE SQ SCH (21:35)
[2017-05-08 06:37] VITALS: BP 140/68; PULSE 89; RESP 16; TEMP 98; O2SAT 95
[2017-05-08] MEDS: amLODIPine BESYLATE 5 MG TAB PO SCH (08:48)
[2017-05-08] MEDS: MEMANTINE HCL 5 MG TAB PO SCH (08:48)
--- NOTE | 2017-05-08 13:37 | HHI.PYPN ---
Subjective Remarks Patient seen in day room with nurse Afia. Chart reviewed. Patient compliant medications. Outpatient no significant behavioral problems, she continues with a sexually inappropriate comments premarked perseveration with requests to the point of demanding that staff calm and sit next to her older hand. She continues to call me sweetheart and honey. And gets upset they do not sit next to her. She continues to state now that her stepmother and stepfather awaiting for her at home. At this time placement continues to remain problematic Review of Systems Except as stated in HPI: all other systems reviewed are Neg Objective Alert: Yes [place]: Person, Place ([place]) Mood: Happy Affect: Other (mildly elevated) Memory Intact: Comment (poor) Hallucinations: Other (denies) Delusions: No Delusion Type: Other (somewhat hypersexual questionable mildly grandiose) Suicidal: Ideation (denies) Homicidal: Ideation (denies) Insight/Judgment Very poor Labs Date/Time Source Procedure Growth Status 04/22/17 11:09 Urine Catheterized Urine Urine Culture - Final 50-100,000 CFU/ML MIXED RADHA... Complete Vitals/IOs Vital Signs Date Time Temp Pulse Resp B/P (MAP) Pulse Ox O2 Delivery O2 Flow Rate FiO2 05/08/17 06:37 98.0 89 16 140/68 (92) 95 Intake and Output 05/08/17 05/08/17 05/09/17 08:00 16:00 00:00 Intake Total 240 ml Balance 240 ml Assessment & Plan Problem List: (1) Dementia in other diseases classified elsewhere with behavioral disturbance ICD Codes: F02.81 - Dementia in other diseases classified elsewhere with behavioral disturbance (2) Alzheimer's dementia with behavioral disturbance ICD Codes: G30.8 - Other Alzheimer's disease; F02.81 - Dementia in other diseases classified elsewhere with behavioral disturbance Assessment & Plan Estimated LOS: days patient continues confused and demented, while no significant behavioral problems she is still somewhat loud intense, with much perseveration with her questions about when she can go home, "come and sit down next to me ", who hold my hand". Justification for Cont. Inpt. At this time patient will decompensate and placed in a lower level of care Discharge Planning To be determined Request HC Surrog/Guard Advoc?: Yes Glenn Castellanos MD May 08, 2017 13:37
[2017-05-08 18:00] VITALS: BP 136/70; PULSE 75; RESP 16; TEMP 98.4; O2SAT 99
[2017-05-08] MEDS: ENOXAPARIN SODIUM 40 MG/0.4 ML SYRINGE SQ SCH (20:50)
[2017-05-09 05:40] VITALS: BP 149/71; PULSE 76; RESP 16; TEMP 97.9; O2SAT 94
[2017-05-09] MEDS: amLODIPine BESYLATE 5 MG TAB PO SCH (09:00)
[2017-05-09] MEDS: MEMANTINE HCL 5 MG TAB PO SCH (09:00)
--- NOTE | 2017-05-09 09:10 | HHI.PYPN ---
Subjective Remarks Patient seen in day room with floor staff, chart review, patient compliant medications. Patient remains alert quite talkative, diffusely confused, is making sexually inappropriate remarks as the to sit down next to her older hand , telling me that she is not going to rape me. However no significant behavior problems noted with this Review of Systems Except as stated in HPI: all other systems reviewed are Neg Objective Alert: Yes [place]: Person, Place ([place]) Mood: Happy Affect: Other (mildly elevated) Memory Intact: Comment (poor) Hallucinations: Other (denies) Delusions: No Delusion Type: Other (somewhat hypersexual questionable mildly grandiose) Suicidal: Ideation (denies) Homicidal: Ideation (denies) Insight/Judgment Poor Labs Date/Time Source Procedure Growth Status 04/22/17 11:09 Urine Catheterized Urine Urine Culture - Final 50-100,000 CFU/ML MIXED RADHA... Complete Vitals/IOs Vital Signs Date Time Temp Pulse Resp B/P (MAP) Pulse Ox O2 Delivery O2 Flow Rate FiO2 05/09/17 05:40 97.9 76 16 149/71 (97) 94 Intake and Output 05/09/17 05/09/17 05/10/17 08:00 16:00 00:00 Intake Total 0 ml Balance 0 ml Assessment & Plan Problem List: (1) Dementia in other diseases classified elsewhere with behavioral disturbance ICD Codes: F02.81 - Dementia in other diseases classified elsewhere with behavioral disturbance (2) Alzheimer's dementia with behavioral disturbance ICD Codes: G30.8 - Other Alzheimer's disease; F02.81 - Dementia in other diseases classified elsewhere with behavioral disturbance Assessment & Plan Estimated LOS: days patient continues confused and demented, while no significant behavioral problems she still is making sexually inappropriate remarks Justification for Cont. Inpt. At this time patient will decompensate then placed a lower level of care Discharge Planning To be determined Request HC Surrog/Guard Advoc?: Yes Glenn Castellanos MD May 09, 2017 09:10
[2017-05-09 17:55] VITALS: BP 136/58; PULSE 96; RESP 16; TEMP 97.2; O2SAT 96
[2017-05-09] MEDS: ENOXAPARIN SODIUM 40 MG/0.4 ML SYRINGE SQ SCH (20:32)
[2017-05-10 05:46] VITALS: BP 170/77; PULSE 77; RESP 16; TEMP 98.7; O2SAT 97
[2017-05-10] MEDS: amLODIPine BESYLATE 5 MG TAB PO SCH (08:38)
[2017-05-10] MEDS: MEMANTINE HCL 5 MG TAB PO SCH (08:38)
--- NOTE | 2017-05-10 09:26 | HHI.PYPN ---
Subjective Remarks Patient seen in the day room with nurse Maciej and counselor Cailin patient continues intense somewhat intrusive and markedly confused. She continues on go back to her home says her parents other waiting for her. Patient showing no insight into her disease or her behaviors. For now continue treatment. Placement may become problematic Review of Systems Except as stated in HPI: all other systems reviewed are Neg Objective Alert: Yes [place]: Person, Place ([place]) Mood: Happy Affect: Other (mildly elevated) Memory Intact: Comment (poor) Hallucinations: Other (denies) Delusions: No Delusion Type: Other (somewhat hypersexual questionable mildly grandiose) Suicidal: Ideation (denies) Homicidal: Ideation (denies) Insight/Judgment Very poor Labs Date/Time Source Procedure Growth Status 04/22/17 11:09 Urine Catheterized Urine Urine Culture - Final 50-100,000 CFU/ML MIXED RADHA... Complete Vitals/IOs Vital Signs Date Time Temp Pulse Resp B/P (MAP) Pulse Ox O2 Delivery O2 Flow Rate FiO2 05/10/17 05:46 98.7 77 16 170/77 (108) 97 Intake and Output 05/10/17 05/10/17 05/10/17 07:59 15:59 23:59 Intake Total 0 ml Balance 0 ml Assessment & Plan Problem List: (1) Dementia in other diseases classified elsewhere with behavioral disturbance ICD Codes: F02.81 - Dementia in other diseases classified elsewhere with behavioral disturbance (2) Alzheimer's dementia with behavioral disturbance ICD Codes: G30.8 - Other Alzheimer's disease; F02.81 - Dementia in other diseases classified elsewhere with behavioral disturbance Assessment & Plan Estimated LOS: days patient continues confused and demented, no behavior problems though she continues intrusive with inappropriate sexual remarks while to hold staff and wanting to kiss them then stated that she we should not be afraid of being raped by her Justification for Cont. Inpt. At this time patient will decompensate placed in the lower level of care Discharge Planning To be determined Request HC Surrog/Guard Advoc?: Yes Glenn Castellanos MD May 10, 2017 09:26
[2017-05-10 18:02] VITALS: BP 126/59; PULSE 79; RESP 18; TEMP 98; O2SAT 98
[2017-05-10] MEDS: ENOXAPARIN SODIUM 40 MG/0.4 ML SYRINGE SQ SCH (20:07)
[2017-05-11 07:06] VITALS: BP 165/76; PULSE 91; RESP 18; TEMP 97.9; O2SAT 96
[2017-05-11] MEDS: MEMANTINE HCL 5 MG TAB PO SCH (11:02)
[2017-05-11] MEDS: amLODIPine BESYLATE 5 MG TAB PO SCH (11:02)
--- NOTE | 2017-05-11 11:23 | HHI.PYPN ---
Subjective Remarks Remains cognitively impaired. Unable to complete activities of daily living without assistance. Discuss case with mental health tech. Reviewed patient's labs. Review of Systems Except as stated in HPI: all other systems reviewed are Neg Objective Alert: Yes [place]: Person, Place ([place]) Mood: Happy Affect: Other (mildly elevated) Memory Intact: Comment (poor) Hallucinations: Other (denies) Delusions: No Delusion Type: Other (somewhat hypersexual questionable mildly grandiose) Suicidal: Ideation (denies) Homicidal: Ideation (denies) Insight/Judgment Impaired Labs Date/Time Source Procedure Growth Status 04/22/17 11:09 Urine Catheterized Urine Urine Culture - Final 50-100,000 CFU/ML MIXED RADHA... Complete Vitals/IOs Vital Signs Date Time Temp Pulse Resp B/P (MAP) Pulse Ox O2 Delivery O2 Flow Rate FiO2 05/11/17 07:06 97.9 91 18 165/76 (105) 96 Assessment & Plan Problem List: (1) Dementia in other diseases classified elsewhere with behavioral disturbance ICD Codes: F02.81 - Dementia in other diseases classified elsewhere with behavioral disturbance (2) Alzheimer's dementia with behavioral disturbance ICD Codes: G30.8 - Other Alzheimer's disease; F02.81 - Dementia in other diseases classified elsewhere with behavioral disturbance Assessment & Plan Estimated LOS: days will continue to assess helpfulness of current psychotropic medicines versus lack of tolerability. Justification for Cont. Inpt. Unable to complete ADLs without assistance. Request HC Surrog/Guard Advoc?: Yes Pawan Sandra MD May 11, 2017 11:23
[2017-05-11 18:20] VITALS: BP 138/67; PULSE 82; RESP 18; TEMP 97.8; O2SAT 97
[2017-05-11] MEDS: ENOXAPARIN SODIUM 40 MG/0.4 ML SYRINGE SQ SCH (21:35)
[2017-05-12 06:44] VITALS: BP 129/84; PULSE 100; RESP 18; TEMP 96.5; O2SAT 97
[2017-05-12] MEDS: MEMANTINE HCL 5 MG TAB PO SCH (10:08)
[2017-05-12] MEDS: amLODIPine BESYLATE 5 MG TAB PO SCH (10:08)
--- NOTE | 2017-05-12 13:00 | HHI.PYPN ---
Subjective Remarks Patient seen and her behavior was discussed with staff. She remains confused and sexually inappropriate. She continues to make advances on this physician. Review of Systems Except as stated in HPI: all other systems reviewed are Neg Objective Alert: Yes [place]: Person, Place ([place]) Mood: Happy Affect: Other (mildly elevated) Memory Intact: Comment (poor) Hallucinations: Other (denies) Delusions: No Delusion Type: Other (somewhat hypersexual questionable mildly grandiose) Suicidal: Ideation (denies) Homicidal: Ideation (denies) Insight/Judgment Impaired Labs Date/Time Source Procedure Growth Status 04/22/17 11:09 Urine Catheterized Urine Urine Culture - Final 50-100,000 CFU/ML MIXED RADHA... Complete Vitals/IOs Vital Signs Date Time Temp Pulse Resp B/P (MAP) Pulse Ox O2 Delivery O2 Flow Rate FiO2 05/12/17 06:44 96.5 100 18 129/84 (99) 97 Assessment & Plan Problem List: (1) Dementia in other diseases classified elsewhere with behavioral disturbance ICD Codes: F02.81 - Dementia in other diseases classified elsewhere with behavioral disturbance (2) Alzheimer's dementia with behavioral disturbance ICD Codes: G30.8 - Other Alzheimer's disease; F02.81 - Dementia in other diseases classified elsewhere with behavioral disturbance Assessment & Plan Estimated LOS: days continue current antipsychotic/mood stabilizing medication for efficacy and tolerability. Justification for Cont. Inpt. Unable to care for self and inappropriate with others. Request HC Surrog/Guard Advoc?: Yes Pawan Sandra MD May 12, 2017 13:00
[2017-05-12 16:25] VITALS: BP 118/56; PULSE 76; RESP 18; TEMP 97.7; O2SAT 95
[2017-05-12] MEDS: ENOXAPARIN SODIUM 40 MG/0.4 ML SYRINGE SQ SCH (21:23)
[2017-05-13 06:00] VITALS: BP 117/56; PULSE 65; RESP 17; TEMP 98.2; O2SAT 96
--- NOTE | 2017-05-13 07:06 | HHI.PYPN ---
Subjective Remarks Patient seen and examined in day area in view of staff. Chart reviewed. Case d /w RN: Tried to refuse Lovenox but ultimately accepted this med. Remains sexually inappropriate, blowing kisses at this video game script writer. Tells me, "I won't rape you." No side effects from medications. No physical complaints. Review of Systems ROS Limitations: Poor Historian Except as stated in HPI: all other systems reviewed are Neg Objective Alert: Yes [place]: Person, Place Mood: Happy Affect: Other (remains a little elevated) Memory Intact: Comment (poor) Hallucinations: Other (No AVH) Delusions: No Delusion Type: Other (No delusions.) Suicidal: Ideation (No SI) Homicidal: Ideation (No HI) Insight/Judgment Poor Remarks Hypersexual. No motor abnormalities noted. Labs Date/Time Source Procedure Growth Status 04/22/17 11:09 Urine Catheterized Urine Urine Culture - Final 50-100,000 CFU/ML MIXED RADHA... Complete Labs reviewed. No recent labs. Vitals/IOs Vital Signs Date Time Temp Pulse Resp B/P (MAP) Pulse Ox O2 Delivery O2 Flow Rate FiO2 05/13/17 06:00 98.2 65 17 117/56 (76) 96 Assessment & Plan Problem List: (1) Alzheimer's dementia with behavioral disturbance ICD Codes: G30.8 - Other Alzheimer's disease; F02.81 - Dementia in other diseases classified elsewhere with behavioral disturbance (2) Dementia in other diseases classified elsewhere with behavioral disturbance ICD Codes: F02.81 - Dementia in other diseases classified elsewhere with behavioral disturbance Assessment & Plan Continue current psychiatric medications as ordered. Continue to monitor on the geropsychiatric unit. Continue other medications and care as ordered. Justification for Cont. Inpt. Impairment in social function. Risk for decompensation in less restrictive environment. Discharge Planning Per Dr. Castellanos Request HC Surrog/Guard Advoc?: Yes Rob Raymond MD May 13, 2017 07:06
[2017-05-13] MEDS: amLODIPine BESYLATE 5 MG TAB PO SCH (09:27)
[2017-05-13] MEDS: MEMANTINE HCL 5 MG TAB PO SCH (09:27)
[2017-05-13] MEDS: ENOXAPARIN SODIUM 40 MG/0.4 ML SYRINGE SQ SCH (21:25)
[2017-05-14 06:00] VITALS: BP 140/91; PULSE 78; RESP 16; TEMP 99.3; O2SAT 96
[2017-05-14] MEDS: amLODIPine BESYLATE 5 MG TAB PO SCH (09:48)
[2017-05-14] MEDS: MEMANTINE HCL 5 MG TAB PO SCH (09:48)
--- NOTE | 2017-05-14 13:33 | HHI.PYPN ---
Subjective Remarks Visions seen in her room with nurse Kely counselor Cailin, chart reviewed, patient compliant medication. Patient alert calm, continues also sexually inappropriate comments wanting Mucinex from the been surgically [place]. There is a focus on her parents loss of her car worry about her house Review of Systems Except as stated in HPI: all other systems reviewed are Neg Objective Alert: Yes [place]: Person, Place Mood: Happy Affect: Other (remains a little elevated) Memory Intact: Comment (poor) Hallucinations: Other (No AVH) Delusions: No Delusion Type: Other (No delusions.) Suicidal: Ideation (No SI) Homicidal: Ideation (No HI) Insight/Judgment Very poor Labs Date/Time Source Procedure Growth Status 04/22/17 11:09 Urine Catheterized Urine Urine Culture - Final 50-100,000 CFU/ML MIXED RADHA... Complete Vitals/IOs Vital Signs Date Time Temp Pulse Resp B/P (MAP) Pulse Ox O2 Delivery O2 Flow Rate FiO2 05/14/17 06:00 99.3 78 16 140/91 (107) 96 Assessment & Plan Problem List: (1) Alzheimer's dementia with behavioral disturbance ICD Codes: G30.8 - Other Alzheimer's disease; F02.81 - Dementia in other diseases classified elsewhere with behavioral disturbance (2) Dementia in other diseases classified elsewhere with behavioral disturbance ICD Codes: F02.81 - Dementia in other diseases classified elsewhere with behavioral disturbance Assessment & Plan Estimated LOS: days patient continues demented somewhat verbally intrusive sexually inappropriate comments. Was compliant medication with no behavioral issues. For now continue treatment Justification for Cont. Inpt. At this time patient will decompensate placed in a lower level of care Discharge Planning To be determined Request HC Surrog/Guard Advoc?: Yes Glenn Castellanos MD May 14, 2017 13:33
[2017-05-14 18:00] VITALS: BP 118/56; PULSE 76; RESP 18; TEMP 97.7; O2SAT 95
[2017-05-14] MEDS: ENOXAPARIN SODIUM 40 MG/0.4 ML SYRINGE SQ SCH (21:45)
[2017-05-15 06:25] VITALS: BP 142/78; PULSE 73; RESP 18; TEMP 97.7; O2SAT 97
[2017-05-15] MEDS: amLODIPine BESYLATE 5 MG TAB PO SCH (08:48)
[2017-05-15] MEDS: MEMANTINE HCL 5 MG TAB PO SCH (08:48)
--- NOTE | 2017-05-15 14:50 | HHI.PYPN ---
Subjective Remarks Patient seen in dayroom with floor staff, chart reviewed, patient compliant medication. Is alert intense labile and intrusive, continue sectioning appropriate with her comments. Continues to question when she would be discharged. Placement remains problematic Review of Systems Except as stated in HPI: all other systems reviewed are Neg Objective Alert: Yes [place]: Person, Place Mood: Happy Affect: Other (remains a little elevated) Memory Intact: Comment (poor) Hallucinations: Other (No AVH) Delusions: No Delusion Type: Other (No delusions.) Suicidal: Ideation (No SI) Homicidal: Ideation (No HI) Insight/Judgment Very poor Labs Date/Time Source Procedure Growth Status 04/22/17 11:09 Urine Catheterized Urine Urine Culture - Final 50-100,000 CFU/ML MIXED RADHA... Complete Vitals/IOs Vital Signs Date Time Temp Pulse Resp B/P (MAP) Pulse Ox O2 Delivery O2 Flow Rate FiO2 05/15/17 06:25 97.7 73 18 142/78 (99) 97 Intake and Output 05/15/17 05/15/17 05/16/17 08:00 16:00 00:00 Intake Total 0 ml Balance 0 ml Assessment & Plan Problem List: (1) Alzheimer's dementia with behavioral disturbance ICD Codes: G30.8 - Other Alzheimer's disease; F02.81 - Dementia in other diseases classified elsewhere with behavioral disturbance (2) Dementia in other diseases classified elsewhere with behavioral disturbance ICD Codes: F02.81 - Dementia in other diseases classified elsewhere with behavioral disturbance Assessment & Plan Estimated LOS: days patient continues diffusely confused and demented, intrusive with sensation inappropriate comments. Though no other behavioral problem Justification for Cont. Inpt. At this time patient will decompensate if placed on the lower level of care Discharge Planning To be determined Request HC Surrog/Guard Advoc?: Yes Glenn Castellanos MD May 15, 2017 14:49
[2017-05-15 17:35] VITALS: BP 113/56; PULSE 65; RESP 17; TEMP 98.2; O2SAT 97
[2017-05-15] MEDS: ENOXAPARIN SODIUM 40 MG/0.4 ML SYRINGE SQ SCH (20:44)
[2017-05-16 06:49] VITALS: BP 138/67; PULSE 84; RESP 22; TEMP 98.8; O2SAT 100
[2017-05-16] MEDS: MEMANTINE HCL 5 MG TAB PO SCH (09:10)
[2017-05-16] MEDS: amLODIPine BESYLATE 5 MG TAB PO SCH (09:10)
--- NOTE | 2017-05-16 15:20 | HHI.PYPN ---
Subjective Remarks Patient seen in her room with nurse Cheryle, patient continues alert pleasant though intrusive with sexually inappropriate comments today asking if I could take her home with me. Compliant medications. Review of Systems Except as stated in HPI: all other systems reviewed are Neg Objective Alert: Yes [place]: Person, Place Mood: Happy Affect: Other (remains a little elevated) Memory Intact: Comment (poor) Hallucinations: Other (No AVH) Delusions: No Delusion Type: Other (No delusions.) Suicidal: Ideation (No SI) Homicidal: Ideation (No HI) Insight/Judgment Poor Labs Date/Time Source Procedure Growth Status 04/22/17 11:09 Urine Catheterized Urine Urine Culture - Final 50-100,000 CFU/ML MIXED RADHA... Complete Vitals/IOs Vital Signs Date Time Temp Pulse Resp B/P (MAP) Pulse Ox O2 Delivery O2 Flow Rate FiO2 05/16/17 06:49 98.8 84 22 138/67 (90) 100 Intake and Output 05/16/17 05/16/17 05/17/17 08:00 16:00 00:00 Intake Total 0 ml 280 ml Balance 0 ml 280 ml Assessment & Plan Problem List: (1) Alzheimer's dementia with behavioral disturbance ICD Codes: G30.8 - Other Alzheimer's disease; F02.81 - Dementia in other diseases classified elsewhere with behavioral disturbance (2) Dementia in other diseases classified elsewhere with behavioral disturbance ICD Codes: F02.81 - Dementia in other diseases classified elsewhere with behavioral disturbance Assessment & Plan Estimated LOS: days patient continues confused demented while no significant behavioral problems remains intrusive with sexually inappropriate comments Justification for Cont. Inpt. At this time patient will decompensate the placed in the lower level of care Discharge Planning To be determined Request HC Surrog/Guard Advoc?: Yes Glenn Castellanos MD May 16, 2017 15:20
[2017-05-16 18:09] VITALS: BP 152/65; PULSE 66; RESP 17; TEMP 98.7; O2SAT 99
[2017-05-16] MEDS: ENOXAPARIN SODIUM 40 MG/0.4 ML SYRINGE SQ SCH (20:42)
[2017-05-17 05:39] VITALS: BP 95/75; PULSE 80; RESP 18; TEMP 96.1
[2017-05-17] MEDS: amLODIPine BESYLATE 5 MG TAB PO SCH (08:59)
[2017-05-17] MEDS: MEMANTINE HCL 5 MG TAB PO SCH ×2 (09:00→09:48)
--- NOTE | 2017-05-17 11:39 | HHI.PYPN ---
Subjective Remarks Patient seen in day room with nurse Maciej, patient continues calm though verbal intense somewhat intrusive, continue somewhat sexually inappropriate comments. Though no significant behavioral problems noted Review of Systems Except as stated in HPI: all other systems reviewed are Neg Objective Alert: Yes [place]: Person, Place Mood: Happy Affect: Other (remains a little elevated) Memory Intact: Comment (poor) Hallucinations: Other (No AVH) Delusions: No Delusion Type: Other (No delusions.) Suicidal: Ideation (No SI) Homicidal: Ideation (No HI) Insight/Judgment Poor Labs Date/Time Source Procedure Growth Status 04/22/17 11:09 Urine Catheterized Urine Urine Culture - Final 50-100,000 CFU/ML MIXED RADHA... Complete Vitals/IOs Vital Signs Date Time Temp Pulse Resp B/P (MAP) Pulse Ox O2 Delivery O2 Flow Rate FiO2 05/17/17 05:39 96.1 80 18 95/75 (82) 05/16/17 18:09 99 Assessment & Plan Problem List: (1) Alzheimer's dementia with behavioral disturbance ICD Codes: G30.8 - Other Alzheimer's disease; F02.81 - Dementia in other diseases classified elsewhere with behavioral disturbance (2) Dementia in other diseases classified elsewhere with behavioral disturbance ICD Codes: F02.81 - Dementia in other diseases classified elsewhere with behavioral disturbance Assessment & Plan Estimated LOS: days patient weighs confused demented, though no behavioral problems. Placement rate somewhat problematic issue alert throughout this time she is reaching maximum benefit of this hospitalization. 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 Inpt. At this time patient decompensate no place to the appropriate level of care Discharge Planning To be determined Request HC Surrog/Guard Advoc?: Yes Glenn Castellanos MD May 17, 2017 11:39
[2017-05-17 17:05] VITALS: BP 110/53; PULSE 67; RESP 18; TEMP 98.1
[2017-05-17] MEDS: ENOXAPARIN SODIUM 40 MG/0.4 ML SYRINGE SQ SCH (20:17)
[2017-05-18 06:21] VITALS: BP 103/56; PULSE 68; RESP 16; TEMP 98.3; O2SAT 96
[2017-05-18] MEDS: amLODIPine BESYLATE 5 MG TAB PO SCH (09:16)
[2017-05-18] MEDS: MEMANTINE HCL 5 MG TAB PO SCH (09:16)
--- NOTE | 2017-05-18 14:28 | HHI.PYPN ---
Subjective Remarks Patient was seen and case discussed with nursing. Patient is alert and oriented 1. Remains elevated and sexually preoccupied. She believes that she is in her house at this time. Grossly confused. Behaving well on the unit, no outbursts. Tolerating medications well Objective Alert: Yes [place]: Person, Place Mood: Happy Affect: Other (remains a little elevated) Memory Intact: Comment (poor) Hallucinations: Other (No AVH) Delusions: No Delusion Type: Other (No delusions.) Suicidal: Ideation (No SI) Homicidal: Ideation (No HI) Insight/Judgment Poor Labs Date/Time Source Procedure Growth Status 04/22/17 11:09 Urine Catheterized Urine Urine Culture - Final 50-100,000 CFU/ML MIXED RADHA... Complete Vitals/IOs Vital Signs Date Time Temp Pulse Resp B/P (MAP) Pulse Ox O2 Delivery O2 Flow Rate FiO2 05/18/17 06:21 98.3 68 16 103/56 (72) 96 Intake and Output 05/18/17 05/18/17 05/19/17 08:00 16:00 00:00 Intake Total 0 ml 240 ml Balance 0 ml 240 ml Assessment & Plan Problem List: (1) Alzheimer's dementia with behavioral disturbance ICD Codes: G30.8 - Other Alzheimer's disease; F02.81 - Dementia in other diseases classified elsewhere with behavioral disturbance (2) Dementia in other diseases classified elsewhere with behavioral disturbance ICD Codes: F02.81 - Dementia in other diseases classified elsewhere with behavioral disturbance Assessment & Plan Continue current treatment plan Justification for Cont. Inpt. Patient would decompensate in a less restrictive setting Request HC Surrog/Guard Advoc?: Yes Abhinav Benjamin DO May 18, 2017 14:28
[2017-05-18 18:26] VITALS: BP 151/87; PULSE 74; RESP 19; TEMP 98.8; O2SAT 99
[2017-05-18] MEDS: ENOXAPARIN SODIUM 40 MG/0.4 ML SYRINGE SQ SCH (21:37)
[2017-05-19 05:33] VITALS: BP 162/73; PULSE 74; RESP 18; TEMP 98.1; O2SAT 97
[2017-05-19] MEDS: amLODIPine BESYLATE 5 MG TAB PO SCH (08:54)
[2017-05-19] MEDS: MEMANTINE HCL 5 MG TAB PO SCH (08:54)
--- NOTE | 2017-05-19 14:05 | HHI.PYPN ---
Subjective Remarks Patient was seen and case discussed with nursing. Patient is more sexually preoccupied compared to yesterday. She try to switch pants with a tech. When asked her mood today patient says "adorable, sex on the rooftop." Also asking for a "Javier Beam and coke." Alert and oriented 1. Grossly confused. Compliant with medications Objective Alert: Yes [place]: Person Mood: Happy Affect: Other (remains a little elevated) Memory Intact: Comment (poor) Hallucinations: Other (No AVH) Delusions: No Delusion Type: Other (erotomanic delusions) Suicidal: Ideation (No SI) Homicidal: Ideation (No HI) Insight/Judgment Poor Labs Date/Time Source Procedure Growth Status 04/22/17 11:09 Urine Catheterized Urine Urine Culture - Final 50-100,000 CFU/ML MIXED RADHA... Complete Vitals/IOs Vital Signs Date Time Temp Pulse Resp B/P (MAP) Pulse Ox O2 Delivery O2 Flow Rate FiO2 05/19/17 05:33 98.1 74 18 162/73 (102) 97 Intake and Output 05/19/17 05/19/17 05/19/17 07:59 15:59 23:59 Intake Total 480 ml Balance 480 ml Assessment & Plan Problem List: (1) Alzheimer's dementia with behavioral disturbance ICD Codes: G30.8 - Other Alzheimer's disease; F02.81 - Dementia in other diseases classified elsewhere with behavioral disturbance (2) Dementia in other diseases classified elsewhere with behavioral disturbance ICD Codes: F02.81 - Dementia in other diseases classified elsewhere with behavioral disturbance Assessment & Plan Continue current treatment plan Justification for Cont. Inpt. Patient will decompensate in a less restrictive setting Request HC Surrog/Guard Advoc?: Yes Abhinav Benjamin DO May 19, 2017 14:05
[2017-05-19 18:29] VITALS: PULSE 73; RESP 17; TEMP 97.7; O2SAT 98
[2017-05-19 20:35] VITALS: BP 137/66; PULSE 67; RESP 17; O2SAT 98
[2017-05-19] MEDS: ENOXAPARIN SODIUM 40 MG/0.4 ML SYRINGE SQ SCH (20:37)
[2017-05-20 05:32] VITALS: BP 126/72; PULSE 64; RESP 17; TEMP 98; O2SAT 97
[2017-05-20 05:54] VITALS: BP 126/72; PULSE 69; RESP 17; TEMP 98; O2SAT 97
[2017-05-20 06:00] VITALS: BP 129/74; PULSE 61; RESP 16; TEMP 98; O2SAT 96
[2017-05-20] MEDS: amLODIPine BESYLATE 5 MG TAB PO SCH (09:28)
[2017-05-20] MEDS: MEMANTINE HCL 5 MG TAB PO SCH (09:28)
--- NOTE | 2017-05-20 12:18 | HHI.PYPN ---
Subjective Remarks Patient was seen and case discussed with nursing. Patient is perseverative on discharge. Per nursing she has been more irritable and demanding. During this interview she is overly pleasant and is blowing kisses. Insight remains poor concerning her diagnosis and reasons for admission. She is compliant with her medications Objective Alert: Yes [place]: Person, Place Mood: Happy Affect: Other (remains a little elevated) Memory Intact: Comment (poor) Hallucinations: Other (No AVH) Delusions: No Delusion Type: Other (erotomanic delusions) Suicidal: Ideation (No SI) Homicidal: Ideation (No HI) Insight/Judgment Poor Labs Date/Time Source Procedure Growth Status 04/22/17 11:09 Urine Catheterized Urine Urine Culture - Final 50-100,000 CFU/ML MIXED RADHA... Complete Vitals/IOs Vital Signs Date Time Temp Pulse Resp B/P (MAP) Pulse Ox O2 Delivery O2 Flow Rate FiO2 05/20/17 05:54 98.0 69 17 126/72 (90) 97 Intake and Output 05/20/17 05/20/17 05/21/17 08:00 16:00 00:00 Intake Total 120 ml 120 ml Balance 120 ml 120 ml Assessment & Plan Problem List: (1) Alzheimer's dementia with behavioral disturbance ICD Codes: G30.8 - Other Alzheimer's disease; F02.81 - Dementia in other diseases classified elsewhere with behavioral disturbance (2) Dementia in other diseases classified elsewhere with behavioral disturbance ICD Codes: F02.81 - Dementia in other diseases classified elsewhere with behavioral disturbance Assessment & Plan Continue current treatment plan Justification for Cont. Inpt. Patient would decompensate in a less restrictive setting Request HC Surrog/Guard Advoc?: Yes Abhinav Benjamin DO May 20, 2017 12:18
[2017-05-20] MEDS: ENOXAPARIN SODIUM 40 MG/0.4 ML SYRINGE SQ SCH (20:15)
[2017-05-21 06:02] VITALS: BP 170/76; PULSE 63; RESP 18; TEMP 97.7; O2SAT 97
[2017-05-21 06:38] VITALS: BP 103/51; PULSE 57; RESP 18; TEMP 97.7; O2SAT 97
[2017-05-21] MEDS: amLODIPine BESYLATE 5 MG TAB PO SCH (08:47)
[2017-05-21] MEDS: MEMANTINE HCL 5 MG TAB PO SCH (08:47)
[2017-05-21] MEDS ORDERED: AMLO5 PO (13:15)
[2017-05-21] MEDS ORDERED: NAME5TAB2 PO (13:15)
[2017-05-21] MEDS ORDERED: LORA-392 PO (13:15)
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
== END 2017-05-21 15:05 | DRG 56 ==
LOC: NEPC 10:18 → NEDA 16:52 → H250 23:45
PROVIDERS: ADMIT Psychiatry & Neurology Psychiatry; ATTEND Psychiatry & Neurology Psychiatry
DX: G30.9 Alzheimer's disease, unspecified (principal); G93.40 Encephalopathy, unspecified; F02.81 Dementia in other diseases classified elsewhere, unspecified severity, with behavioral disturbance; I82.441 Acute embolism and thrombosis of right tibial vein; M21.961 Unspecified acquired deformity of right lower leg; I10 Essential (primary) hypertension
CPT/HCPCS: 70450; 70551; 71010; 80048; 80053; 80061; 80307; 81001; 82306; 82607; 83036; 84439; 84443; 85025; 86592; 87086; 93005; 93971; 95819; 96372; J1630; J1650; J2060; Q0163